=== PATIENT | female | born 1995 | race Caucasian/White ===

== ENCOUNTER 2023-09-19 07:55 | Inpatient (IN) | payer BC, SELFPAY ==
[2023-09-19 08:22] VITALS: BP 112/62; BMI 28.3
[2023-09-19 09:22] LABS: % Basophils 0.1 % (0-2); % Eosinophils 0.1 % (0-6); % Immature Granulocytes 0.9 % (0-0.5); % Lymphocytes 12.3 % (20.5-51.1); % Monocytes 7.8 % (1.7-9.3); % Neutrophils 78.8 % (42.2-75.2); Absolute Immature Granulocytes 0.1 10^3/uL (0-0.05); Absolute Lymphocytes 0.9 10^3/uL (1.2-3.4); Absolute Monocytes 0.6 10^3/uL (0.1-0.6); Absolute Neutrophils 5.9 10^3/uL (1.4-6.5); Hematocrit 31.7 % (37.0-47.0); Mean Corp Hgb Conc. 34.7 g/dL (33.0-37.0); Mean Corpuscular Hgb 31.2 pg (27.0-31.0); Mean Corpuscular Volume 89.8 fL (81.0-99.0); Mean Platelet Volume 9.5 fL (7.4-10.4); Nucleated Red Blood Cells % 0 %; Platelet Count 203 10^3/uL (130-400); Red Blood Cell Count 3.53 10^6/uL (4.20-5.40); White Blood Cell Count 7.5 10^3/uL (4.8-10.8)
[2023-09-19] MEDS: FENTANYL/BUPIVACAINE 100 EPIDURAL (17:05)
[2023-09-19] MEDS: SUBLIMAZE 100 MCG EPIDURAL (17:05)
[2023-09-19] MEDS: LR 1000 IV (17:33)
[2023-09-19] MEDS: TUMS EX (EXTRA STRENGTH) CHEWABLE 1 TABLET PO (21:47)
[2023-09-20] MEDS: FENTANYL/BUPIVACAINE 100 EPIDURAL (00:49)
[2023-09-20] MEDS: PITOCIN 30 UNITS/NSS 500 ML IV (02:03)
[2023-09-20] MEDS: FEOSOL 325 MG PO (07:15)
[2023-09-20] MEDS: PRENATAL PLUS 1 TABLET PO (07:15)
[2023-09-20] MEDS: MOTRIN 600 MG PO ×2 (08:34→15:04)
[2023-09-21 05:46] LABS: Hemoglobin 10.5 g/dL (12.0-16.0)
[2023-09-21] MEDS: MOTRIN 600 MG PO ×2 (06:48→15:20)
[2023-09-21] MEDS: FEOSOL 325 MG PO (15:27)
[2023-09-21] MEDS: PRENATAL PLUS PO (15:27)
[2023-09-22] MEDS: PRENATAL PLUS PO ×2 (07:48→07:55)
[2023-09-22] MEDS: FEOSOL 325 MG PO (07:48)
[2023-09-22] MEDS: MOTRIN 600 MG PO (07:48)
[2023-09-24 15:35] LABS: Syphilis/T. pallidum Ab Reflex Negative (Negative)
== END 2023-09-22 11:10 | disposition home or self-care (01) | DRG 807 ==
LOC: LDRP 07:55
PROVIDERS: ADMITTING PHYSICIAN Obstetrics & Gynecology
PROC: 0HQ9XZZ Repair Perineum Skin, External Approach (ICD-10-PCS; 2023-09-20)
PROC: 10E0XZZ Delivery of Products of Conception, External Approach (ICD-10-PCS; 2023-09-20)
DX: O69.81X0 Labor and delivery complicated by cord around neck, without compression, not applicable or unspecified (principal); Z37.0 Single live birth; O76 Abnormality in fetal heart rate and rhythm complicating labor and delivery; O70.0 First degree perineal laceration during delivery; Z3A.38 38 weeks gestation of pregnancy
CPT/HCPCS: 85014; 85018; 85025; 86780; 86850; 86900; 86901